=== PATIENT | male | born 1985 | race Caucasian/White ===

== ENCOUNTER 2017-09-14 19:25 | Inpatient (IN) | payer OTHER, SELFPAY ==
[~2017-09-14 19:25] MED LIST: ISOVUE-370 76%-LOCM 1 ML ONE
[2017-09-14 19:43] LABS: #Eosinphils 0.2 thou/uL (0.0-0.7); #Lymphocytes 2.6 thou/uL (1.20-3.40); #Monocytes 1.3 thou/uL (0.11-0.59); #Neutrophils 11.2 thou/uL (1.40-6.50); %Basophils 0.2 % (0.0-1.0); %Eosinophils 1.3 % (0.0-10.0); %Lymphocytes 16.6 % (21.0-51.0); %Monocytes 8.6 % (0.0-10.0); %Neutrophils 73.3 % (42.0-75.0); Hemoglobin 14.7 g/dL (14.0-18.0); Mean Corpuscular HGB CONC 33.5 g/dL (32.0-36.0); Mean Corpuscular Hemoglobin 31.5 pg (27.0-31.0); Mean Platelet Volume 7.8 fL (7.4-10.4); Platelet Count 213 thou/uL (130-400); RBC Distribution Width 12.2 % (11.5-14.5); Red Blood Cell (RBC) Count 4.67 mill/uL (4.70-6.10); White Blood Cell (WBC) Count 15.3 thou/uL (4.8-10.8)
[2017-09-14 19:55] LABS: ALT (SGPT) 17 U/L (8-55); AST (SGOT) 28 U/L (5-34); Albumin 4.3 g/dL (3.5-5.0); Alcohol 85 mg/dL (Less than 10); Alkaline Phosphatase 47 U/L (40-150); Anion Gap 16 mmol/L (10-20); BUN (Urea Nitrogen) 12 mg/dL (8.9-20.6); Bilirubin, Total 0.3 mg/dL (0.2-1.2); Calc. Creatinine Clearance 0 mL/min (70-130); Calcium 8.4 mg/dL (7.8-10.44); Carbon Dioxide 20 mmol/L (22-29); Chloride 105 mmol/L (98-107); Estimated GFR-MDRD Greater than 90; Globulin 3.2 g/dL (2.4-3.5); Glucose 91 mg/dL (70-105); Protein, Total 7.5 g/dL (6.0-8.3); Sodium 137 mmol/L (136-145)
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
[2017-09-14] MEDS ORDERED: Fentanyl 100 MCG/2 ML VIAL ONE ×2 (20:13→21:10)
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
[2017-09-14 20:35] LABS: Bilirubin Negative (Negative); Blood, Urine Negative (Negative); Clarity CLEAR (Clear); Glucose, Urine (Dipstick) Negative (Negative); Leukocyte Negative (Negative); Nitrite Negative (Negative); Protein, Urine (Dipstick) Negative (Neg-Trace); Urobilinogen 0.2 mg/dL (0.2-1.0); pH, Urine 5.5 (5.0-9.0)
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
[2017-09-14 20:42] LABS: Specific Gravity, Urine 1.046 (1.002-1.036)
[2017-09-14] MEDS ORDERED: Calcium Carbonate 500 MG ChewTAB PO SCH (21:15)
[2017-09-14] MEDS ORDERED: Morphine 4 MG/ML VIAL ONE (21:48)
[2017-09-14 22:09] LABS: Amphetamine Not Detected (NotDetected); Barbiturates Screen Not Detected (NotDetected); Benzodiazepine Screen Not Detected (NotDetected); Cocaine Metabolite Screen Not Detected (NotDetected); Medtox Control Line Valid? VALID (VALID); Medtox Reader # READER 4; Methadone Not Detected (NotDetected); Methamphetamine Not Detected (NotDetected); Opiate Screen Not Detected (NotDetected); Oxycodone Screen Not Detected (NotDetected); Phencyclidine (PCP) Not Detected (NotDetected); THC/Cannabinoid Screen Detected (NotDetected); Tricyclic Screen Not Detected (NotDetected)
[2017-09-14] MEDS ORDERED: Dextrose 5% in Water 1,000 ML IV PRN (22:49)
[2017-09-14] MEDS ORDERED: Dextrose 50% Abboject 50 ML SYRINGE SLOW IVP PRN (22:49)
[2017-09-14] MEDS ORDERED: Morphine 4 MG/ML VIAL SLOW IVP PRN (22:49)
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
[2017-09-14] MEDS: Sodium Chloride 0.9% 1,000 ML IV SCH (23:20)
[2017-09-14] MEDS: Acetaminophen 1,000 MG in Premix Bag 1 BAG IVPB SCH (23:21)
[2017-09-14] MEDS: Morphine 4 MG/ML VIAL SLOW IVP PRN (23:21)
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
[2017-09-15 00:16] VITALS: BMI 21.8
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
[2017-09-15] MEDS: Morphine 4 MG/ML VIAL SLOW IVP PRN (04:51)
[2017-09-15 05:36] LABS: Anion Gap 11 mmol/L (10-20); BUN (Urea Nitrogen) 8 mg/dL (8.9-20.6); Calc. Creatinine Clearance 136 mL/min (70-130); Calcium 8.1 mg/dL (7.8-10.44); Carbon Dioxide 23 mmol/L (22-29); Chloride 105 mmol/L (98-107); Estimated GFR-MDRD Greater than 90; Glucose 97 mg/dL (70-105); Magnesium 2.1 mg/dL (1.6-2.6); Potassium 3.9 mmol/L (3.5-5.1); Sodium 135 mmol/L (136-145)
[2017-09-15 05:47] LABS: #Eosinphils 0.1 thou/uL (0.0-0.7); #Lymphocytes 2.1 thou/uL (1.20-3.40); #Monocytes 1.5 thou/uL (0.11-0.59); %Basophils 0.4 % (0.0-1.0); %Eosinophils 0.5 % (0.0-10.0); %Lymphocytes 15.3 % (21.0-51.0); %Monocytes 10.8 % (0.0-10.0); Hemoglobin 14.7 g/dL (14.0-18.0); Mean Corpuscular HGB CONC 33.9 g/dL (32.0-36.0); Mean Corpuscular Volume 94.6 fl (80.0-94.0); Mean Platelet Volume 8.2 fL (7.4-10.4); Platelet Count 212 thou/uL (130-400); RBC Distribution Width 12.2 % (11.5-14.5); Red Blood Cell (RBC) Count 4.59 mill/uL (4.70-6.10); White Blood Cell (WBC) Count 13.7 thou/uL (4.8-10.8)
[2017-09-15] MEDS: Acetaminophen 1,000 MG in Premix Bag 1 BAG IVPB SCH ×4 (06:13→23:12)
[2017-09-15] MEDS ORDERED: Diazepam 10 MG/2 ML SYRINGE IVP SCH ×2 (06:30→06:37)
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
[2017-09-15] MEDS: Sodium Chloride 0.9% 1,000 ML IV SCH ×3 (08:21→17:25)
[2017-09-15] MEDS ORDERED: Famotidine 40 MG/4 ML VIAL SLOW IVP SCH (09:00)
[2017-09-15] MEDS ORDERED: Promethazine HCl 25 MG/ML VIAL IM PRN (09:30)
[2017-09-15] MEDS ORDERED: diphenhydrAMINE 50 MG/ML VIAL IVP PRN (09:30)
[2017-09-15] MEDS ORDERED: Ondansetron HCl/PF 4 MG/2 ML Vial IVP PRN (09:30)
[2017-09-15] MEDS ORDERED: Naloxone HCl 0.4 mg/ml Vial IV PRN (09:30)
[2017-09-15] MEDS ORDERED: Communication Order-Pharmacy FS SCH (09:30)
[2017-09-15] MEDS ORDERED: diphenhydrAMINE 50 MG/ML VIAL IM PRN (09:30)
[2017-09-15] MEDS ORDERED: Bupivacaine HCl 0.5%/Epinephrine 1:200,000/PF 30 ml Vial ONE (10:14)
[2017-09-15] MEDS ORDERED: Thrombin 5000 UNITS/5 ML VIAL ONE (10:14)
[2017-09-15] MEDS ORDERED: Fentanyl 100 MCG/2 ML VIAL ONE ×3 (10:20→14:15)
[2017-09-15] MEDS ORDERED: Midazolam HCl 2 mg/2 ml Vial ONE ×3 (10:20→13:37)
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
[2017-09-15] MEDS ORDERED: CEFAZOLIN/Water 2 GM/20 ML SYRINGE ONE (10:36)
[2017-09-15] MEDS ORDERED: Lidocaine 1% PF 5 ML VIAL ONE (11:38)
[2017-09-15] MEDS ORDERED: PROPOFOL 200 MG/20 ML VIAL ONE (11:38)
[2017-09-15] MEDS ORDERED: Glycopyrrolate 0.2 MG/ML 5 ML SYRINGE ONE (11:38)
[2017-09-15] MEDS ORDERED: Ondansetron HCl/PF 4 MG/2 ML Vial ONE ×2 (11:38→13:05)
[2017-09-15] MEDS ORDERED: PHENYLEPHRINE-NS 100 MCG/ML 10 ML SYRINGE ONE (11:38)
[2017-09-15] MEDS ORDERED: Ketorolac Tromethamine 30 MG/ML VIAL ONE (11:38)
[2017-09-15] MEDS ORDERED: Dexamethasone 20 MG/5 ML VIAL ONE (11:38)
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
[2017-09-15] MEDS ORDERED: Morphine Sulfate 2 MG/ML SYRINGE SLOW IVP PRN (13:43)
[2017-09-15] MEDS ORDERED: Meperidine HCl/PF 25 MG/ML VIAL SLOW IVP PRN (13:43)
[2017-09-15] MEDS ORDERED: Promethazine HCl 25 MG/ML VIAL SLOW IVP PRN (13:43)
[2017-09-15] MEDS ORDERED: HYDROmorphone 2 MG/ML VIAL SLOW IVP PRN (13:43)
[2017-09-15] MEDS ORDERED: Midazolam HCl 2 mg/2 ml Vial SLOW IVP ONE (13:45)
[2017-09-15] MEDS ORDERED: Morphine 4 MG/ML VIAL SLOW IVP PRN (14:58)
[2017-09-15] MEDS ORDERED: HYDROcodone/Acetaminophen 10/325 mg Tablet PO PRN ×2 (14:58)
[2017-09-15] MEDS ORDERED: Mag-Al 1200 mg/1200 mg/30 ML UDCUP PO PRN (14:58)
[2017-09-15] MEDS ORDERED: Bisacodyl 10 MG SUPP PR PRN (14:58)
[2017-09-15] MEDS: HYDROmorphone 10 mg/100 ml CADD IVPB PRN (15:35)
[2017-09-15] MEDS: CEFAZOLIN/Water 2 GM/20 ML SYRINGE SLOW IVP SCH (18:21)
[2017-09-15] MEDS: Famotidine 20 MG TAB PO SCH (20:42)
[2017-09-15] MEDS: Cyclobenzaprine 10 MG TAB PO PRN (20:42)
[2017-09-15] MEDS: diphenhydrAMINE 25 MG CAP PO PRN (21:08)
[2017-09-16] MEDS: Sodium Chloride 0.9% 1,000 ML IV SCH ×2 (02:10→06:40)
[2017-09-16] MEDS: CEFAZOLIN/Water 2 GM/20 ML SYRINGE SLOW IVP SCH ×3 (03:06→19:17)
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
[2017-09-16] MEDS: Cyclobenzaprine 10 MG TAB PO PRN ×2 (05:41→14:16)
[2017-09-16] MEDS: diphenhydrAMINE 25 MG CAP PO PRN (05:49)
[2017-09-16] MEDS: Senokot S 8.6-50 MG TAB PO SCH ×2 (08:14→21:28)
[2017-09-16] MEDS: Polyethylene Glycol 3350 17 GM Packet PO SCH (08:14)
[2017-09-16] MEDS: HYDROmorphone 10 mg/100 ml CADD IVPB PRN (08:14)
[2017-09-16 08:16] LABS: #Lymphocytes 1.3 thou/uL (1.20-3.40); #Neutrophils 12.7 thou/uL (1.40-6.50); %Eosinophils 0.1 % (0.0-10.0); %Lymphocytes 7.8 % (21.0-51.0); %Monocytes 12.4 % (0.0-10.0); %Neutrophils 79.7 % (42.0-75.0); Hemoglobin 11.8 g/dL (14.0-18.0); Mean Corpuscular HGB CONC 32.5 g/dL (32.0-36.0); Mean Corpuscular Volume 95.5 fl (80.0-94.0); Platelet Count 192 thou/uL (130-400)
[2017-09-16 08:34] LABS: Anion Gap 13 mmol/L (10-20); BUN (Urea Nitrogen) 6 mg/dL (8.9-20.6); Calc. Creatinine Clearance 135 mL/min (70-130); Calcium 8.2 mg/dL (7.8-10.44); Carbon Dioxide 25 mmol/L (22-29); Chloride 101 mmol/L (98-107); Estimated GFR-MDRD Greater than 90; Glucose 95 mg/dL (70-105); Magnesium 1.9 mg/dL (1.6-2.6); Phosphorus 2.5 mg/dL (2.3-4.7); Potassium 3.7 mmol/L (3.5-5.1); Sodium 135 mmol/L (136-145)
[2017-09-16] MEDS ORDERED: Enoxaparin Sodium 40 MG/0.4 ML SYRINGE SC SCH (09:00)
--- NOTE | 2017-09-16 09:45 | PRG ---
DATE OF SERVICE: 09/16/2017 SUBJECTIVE: Mr. Rowe is on postop day #1 following lumbar fusion at L1-L2. He is doing mostly w ell. His pain is being controlled with a SALES REPRESENT[employer]IVE [employer] that was set up yesterday by the Trauma team and Anesth esia. His most significant pains are when he is trying to move or get up, particularly also when he is coughing. He is using his incentive spirometer well. The drain has continued to put out and I th ink we will leave it in for at least another 8-12 hours, if not overnight. Ancef is still being run q.8 hours to cover this while the drains in place. From neurosurgery's perspective as long as he has the brace on, which he does have at bedside, he can get up with therapy and walk as well. We will c aury to monitor his progress.
[2017-09-16] MEDS: Famotidine 20 MG TAB PO SCH ×2 (12:09→21:27)
[2017-09-16] MEDS: traMADol HCl 50 MG TAB PO SCH ×2 (14:09→21:28)
[2017-09-16] MEDS: Gabapentin 300 MG CAP PO SCH ×2 (14:09→21:28)
[2017-09-16] MEDS: Acetaminophen 500 MG TAB PO SCH ×2 (14:10→21:28)
[2017-09-16] MEDS: Ibuprofen 800 MG TAB PO SCH ×2 (14:10→21:29)
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
[2017-09-17] MEDS: Acetaminophen 500 MG TAB PO SCH ×2 (03:00→10:01)
[2017-09-17] MEDS: traMADol HCl 50 MG TAB PO SCH ×2 (03:00→10:01)
[2017-09-17] MEDS: CEFAZOLIN/Water 2 GM/20 ML SYRINGE SLOW IVP SCH (03:01)
[2017-09-17] MEDS: Ibuprofen 800 MG TAB PO SCH (05:40)
[2017-09-17] MEDS: Cyclobenzaprine 10 MG TAB PO PRN (05:40)
[2017-09-17 08:01] VITALS: BP 130/64; TEMP 97.4
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
[2017-09-17] MEDS: Polyethylene Glycol 3350 17 GM Packet PO SCH (10:01)
[2017-09-17] MEDS: Famotidine 20 MG TAB PO SCH (10:02)
[2017-09-17] MEDS: Gabapentin 300 MG CAP PO SCH (10:02)
[2017-09-17] MEDS: Senokot S 8.6-50 MG TAB PO SCH (10:02)
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
== END 2017-09-17 11:09 | disposition home or self-care (01) | DRG 460 ==
LOC: ERS 19:25 → SURG A 21:10
PROVIDERS: ADMIT Surgery; ATTEND Surgery
PROC: 0SG0071 Fusion of Lumbar Vertebral Joint with Autologous Tissue Substitute, Posterior Approach, Posterior Column, Open Approach (ICD-10-PCS; principal; 2017-09-14)
PROC: 0QS004Z Reposition Lumbar Vertebra with Internal Fixation Device, Open Approach (ICD-10-PCS; 2017-09-14)
DX: S32.019A Unspecified fracture of first lumbar vertebra, initial encounter for closed fracture (principal); F10.129 Alcohol abuse with intoxication, unspecified; V19.88XA Pedal cyclist (driver) (passenger) injured in other specified transport accidents, initial encounter; J45.909 Unspecified asthma, uncomplicated; F17.210 Nicotine dependence, cigarettes, uncomplicated
CPT/HCPCS: 36415; 70450; 71260; 72125; 72131; 72170; 74177; 76001; 80048; 80053; 80306; 80307; 81003; 83735; 84100; 85025; 86850; 86870; 86900; 86901; 86904; 93005; 94640; 96361; 96374; 96375; 96376; 99406; C1713; C1768; G0390; G8978-GP-CK; G8979-GP-CI; G8987-GO-CJ; G8988-GO-CH; J0131; J0670; J1100; J1650; J1885; J2001; J2250; J2270; J2405; J2704; J3010; J3360; J7620

== ENCOUNTER 2017-10-28 09:38 | Outpatient (CLI) | payer OTHER ==
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
--- NOTE | 2017-10-28 10:43 | RAD ---
THORACIC SPINE TWO VIEWS: HISTORY: 22.0088 (unspecified thoracic vertebrae). Injury. COMPARISON: CT lumbar spine from 09/14/2017 FINDINGS: There is a similar appearance to the L1 compression fracture, though it is not well appreciated on th e thoracic spine radiographs from today. No acute superimposed fracture or malalignment of the thora cic spine. The paraspinal soft tissue is unremarkable. IMPRESSION: Intact thoracic spine. POS: [facility]
== END 2017-10-28 09:39 | disposition home or self-care (01) ==
LOC: TBSIIMAG 09:38
PROVIDERS: ATTEND Neurological Surgery
DX: S22.008A Other fracture of unspecified thoracic vertebra, initial encounter for closed fracture (principal)
CPT/HCPCS: 72070; 72100

== ENCOUNTER 2017-11-25 13:01 | Outpatient (CLI) | payer OTHER ==
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
== END 2017-11-25 13:02 | disposition home or self-care (01) ==
LOC: TBSIIMAG 13:01
PROVIDERS: ATTEND Neurological Surgery
DX: S22.008A Other fracture of unspecified thoracic vertebra, initial encounter for closed fracture (principal); M47.894 Other spondylosis, thoracic region; S32.019D Unspecified fracture of first lumbar vertebra, subsequent encounter for fracture with routine healing
CPT/HCPCS: 72070; 72100

== ENCOUNTER 2018-02-24 13:08 | Outpatient (CLI) | payer OTHER ==
--- NOTE | 2018-02-24 16:59 | RAD ---
TWO VIEWS LUMBAR SPINE 02/24/18 HISTORY: Followup lumbar surgery. COMPARISON: 11/25/17. FINDINGS: Again noted are postsurgical changes related to posterior fusion at the L1-2 level with bipedicular s crews and posterior rods again transfixing this level. Wedge shaped compression fracture of the L1 ve rtebral body is again seen with distal portion of the screws approaching the superior margin of the v ertebral body, but this is stable from prior study. The remaining vertebral body heights are within n ormal limits. There is no additional fracture or subluxation involving the lumbar spine. There is sli ght exaggerated kyphosis of the thoracolumbar spine centered at the level of the L1 vertebral body co mpression fracture. This is also a stable finding. IMPRESSION: Stable height loss of L1 vertebral body compression fracture with stable postsurgical changes upper l umbar spine. POS: [facility]
== END 2018-02-24 13:09 | disposition home or self-care (01) ==
LOC: TBSIIMAG 13:08
PROVIDERS: ATTEND Neurological Surgery
DX: S22.008A Other fracture of unspecified thoracic vertebra, initial encounter for closed fracture (principal); S32.010D Wedge compression fracture of first lumbar vertebra, subsequent encounter for fracture with routine healing; Z98.1 Arthrodesis status
CPT/HCPCS: 72100

== ENCOUNTER 2018-06-10 16:43 | Emergency (ER) | payer OTHER, SELFPAY | END 2018-06-10 17:22 | disposition home or self-care (01) | LOC: ERS 16:43 | DX: K02.9 Dental caries, unspecified (principal); F17.210 Nicotine dependence, cigarettes, uncomplicated | CPT/HCPCS: 99282 ==

== ENCOUNTER 2019-01-06 10:28 | Emergency (ER) | payer SELFPAY ==
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
== END 2019-01-06 11:55 | disposition home or self-care (01) ==
LOC: ERS 10:28
DX: S90.32XA Contusion of left foot, initial encounter (principal); Z71.6 Tobacco abuse counseling; J45.909 Unspecified asthma, uncomplicated; Z87.891 Personal history of nicotine dependence; F17.210 Nicotine dependence, cigarettes, uncomplicated; W23.0XXA Caught, crushed, jammed, or pinched between moving objects, initial encounter
CPT/HCPCS: 99406